=== PATIENT | male | born 1960 | race American Indian/Alaskan Native ===

== ENCOUNTER 2017-07-21 13:49 | Emergency (ER) | payer OTHER ==
[2017-07-21 14:46] VITALS: BP 136/85
[2017-07-21 21:20] LABS: Basophils % (Auto) 0.4 % (0.0-1.8); Eosinophils % (Auto) 0.4 % (0.0-4.3); Hematocrit 43.5 % (35.5-45.6); Hemoglobin 14.2 gm/dl (11.8-15.2); Lymphocytes # (Auto) 1.2 K/mm3 (1.2-5.4); Lymphocytes % (Auto) 17.4 % (13.4-35.0); Mean Corpuscular HGB Conc 33 % (32-34); Mean Corpuscular Hemoglobin 27 pg (28-32); Mean Corpuscular Volume 81 fl (84-94); Monocytes # (Auto) 0.4 K/mm3 (0.0-0.8); Monocytes % (Auto) 6.4 % (0.0-7.3); Platelet Count 238 K/mm3 (140-440); Red Blood Count 5.38 M/mm3 (3.65-5.03); Red Cell Distribution Width 14.6 % (13.2-15.2)
[2017-07-21 21:32] LABS: BUN/Creatinine Ratio 13; Blood Urea Nitrogen 12 mg/dL (9-20); Calcium 9.5 mg/dL (8.4-10.2); Hemolysis Index 11
--- NOTE | 2017-07-21 22:01 | Emergency Department Report ---
ED General Adult HPI - General Chief complaint: High BP Stated complaint: blood pressure up Time Seen by Provider: 07/21/17 20:40 Source: patient Mode of arrival: Ambulatory Limitations: No Limitations - History of Present Illness Initial comments: This is a 56-year-old male nontoxic, well nourished in appearance, no acute signs of distress presents to the ED with c/o of high blood pressure. Patient stated he was at work earlier today and started to feel dizzy and took his blood pressure and was 173/118 and then 30 mins re took it and was 160/90. Patient stated now his symptoms of dizziness has subsided and his blood pressure is under control without taking anything. Patient stated he takes daily lisinopril which she did take today. Patient denies any chest pain, shortness of breath, hemoptysis, fever, chills, nausea, vomiting, headache, stiff neck, blurry vision, visual changes, numbness or tingling. Patient denies any allergies. Past medical history includes hypertension. MD Complaint: high blood pressure -: This afternoon Severity scale (0 -10): 0 Improves with: none Worsens with: none Associated Symptoms: denies other symptoms. denies: confusion, chest pain, cough, diaphoresis, fever/chills, headaches, loss of appetite, malaise, nausea/ vomiting, rash, seizure, shortness of breath, syncope, weakness Treatments Prior to Arrival: none - Related Data Allergies Allergy/AdvReac Type Severity Reaction Status Date / Time No Known Allergies Allergy Unverified 07/21/17 14:41 ED Review of Systems ROS: Stated complaint: blood pressure up Other details as noted in HPI Constitutional: denies: chills, fever Eyes: denies: eye pain, eye discharge, vision change ENT: denies: ear pain, throat pain Respiratory: denies: cough, shortness of breath, wheezing Cardiovascular: denies: chest pain, palpitations Endocrine: no symptoms reported Gastrointestinal: denies: abdominal pain, nausea, diarrhea Genitourinary: denies: urgency, dysuria Musculoskeletal: denies: back pain, joint swelling, arthralgia Skin: denies: rash, lesions Neurological: denies: headache, weakness, paresthesias Psychiatric: denies: anxiety, depression Hematological/Lymphatic: denies: easy bleeding, easy bruising ED Past Medical Hx - Past Medical History Hx Hypertension: Yes - Social History Smoking Status: Former Smoker Substance Use Type: None ED Physical Exam - General Limitations: No Limitations General appearance: alert, in no apparent distress - Head Head exam: Present: atraumatic, normocephalic, normal inspection - Eye Eye exam: Present: normal appearance, PERRL, EOMI. Absent: scleral icterus, conjunctival injection, nystagmus, periorbital swelling, periorbital tenderness Pupils: Present: normal accommodation - ENT ENT exam: Present: normal exam, normal orophraynx, mucous membranes moist, TM's normal bilaterally, normal external ear exam - Neck Neck exam: Present: normal inspection, full ROM. Absent: tenderness, meningismus, lymphadenopathy, thyromegaly - Respiratory Respiratory exam: Present: normal lung sounds bilaterally. Absent: respiratory distress, wheezes, rales, rhonchi, stridor, chest wall tenderness, accessory muscle use, decreased breath sounds, prolonged expiratory - Cardiovascular Cardiovascular Exam: Present: regular rate, normal rhythm, normal heart sounds. Absent: bradycardia, tachycardia, irregular rhythm, systolic murmur, diastolic murmur, rubs, gallop - GI/Abdominal GI/Abdominal exam: Present: soft, normal bowel sounds. Absent: distended, tenderness, guarding, rebound, rigid, diminished bowel sounds - Rectal Rectal exam: Present: deferred - Extremities Exam Extremities exam: Present: normal inspection, full ROM, normal capillary refill. Absent: tenderness, pedal edema, joint swelling, calf tenderness - Back Exam Back exam: Present: normal inspection, full ROM. Absent: tenderness, CVA tenderness (R), CVA tenderness (L), muscle spasm, paraspinal tenderness, vertebral tenderness, rash noted - Neurological Exam Neurological exam: Present: alert, oriented X3, CN II-XII intact, normal gait, reflexes normal - Psychiatric Psychiatric exam: Present: normal affect, normal mood - Skin Skin exam: Present: warm, dry, intact, normal color. Absent: rash ED Course Vital Signs 07/21/17 14:42 Temperature 98.6 F Pulse Rate 70 Respiratory 18 Rate Blood Pressure 136/85 O2 Sat by Pulse 96 Oximetry - Reevaluation(s) Reevaluation #1: 07/21/17 22:03 Patient is speaking in full sentences with no signs of distress - Consultations Consultation #1: 07/21/17 22:04 Dr. Curran has been consulted about patient history, physical exam, and laboratory /EKG results and increase the discharge plan of care and follow-up. ED Medical Decision Making - Lab Data Result diagrams: 07/21/17 21:00 07/21/17 21:00 - EKG Data When compared to previous EKG there are: no significant change Interpretation: no acute changes 07/21/17 22:03 normal sinus rhytm with artiral premature complex - Medical Decision Making This is a 56-year-old male that presents with evaluation of high blood pressure. Patient is stable and was examined by me. EKG obtained. Dr. Curran has been consulted about patient history, physical exam, and laboratory/EKG results and increase the discharge plan of care and follow-up. CBC, BMP, troponin within normal limits. Patient stated his dizziness has subsided. His vital signs are stable with pressure of 136/85. Orthostatic vital signs within normal limits. Patient has discharge and was instructed to follow-up with a primary care doctor/distance learning administrator within 24 hours for slight abnormal EKG or if symptoms worsen and continue to return to emergency room as soon as possible. At time time of discharge, the patient does not seem toxic or ill in appearance. No acute signs of distress noted. Patient agrees to discharge treatment plan of care. No further questions noted by the patient. Critical care attestation.: If time is entered above; I have spent that time in minutes in the direct care of this critically ill patient, excluding procedure time. ED Disposition Clinical Impression: Dizziness Hypertension Qualifiers: Hypertension type: unspecified Qualified Code(s): I10 - Essential (primary) hypertension Disposition: - TO HOME OR SELFCARE Is pt being admited?: No Does the pt Need Aspirin: No Condition: Stable Instructions: Hypertension (ED), Dizziness (ED) Additional Instructions: Follow-up with a primary care doctor/distance learning administrator within 24 hours for slight abnormal EKG or if symptoms worsen and continue to return to emergency room as soon as possible. Continue taking your blood pressure medication and directed by your primary care doctor and keep a daily diary to present it to your doctor. Referrals: PRIMARY CARE, [Primary Care Provider] - 3-5 Days MINERVA ASHLEY MD [Staff Physician] - 3-5 Days TIARRA RAMSEY MD [Staff Physician] - 3-[address] [facility] [Outside] - 3-5 Days [facility] [Outside] - 3-5 Days Forms: Work/School Release Form(ED)
== END 2017-07-21 22:24 | disposition home or self-care (01) ==
LOC: ED 13:49
DX: I10 Essential (primary) hypertension (principal); R42 Dizziness and giddiness; Z87.891 Personal history of nicotine dependence
CPT/HCPCS: 36415; 80048; 84484; 85025; 93005; 93010; 99283